=== PATIENT | male | born 1975 | race Caucasian/White ===

== ENCOUNTER 2021-08-06 14:05 | Inpatient (IN) | payer SELFPAY ==
[2021-08-06] VITALS (78 sets, daily range): BP systolic 86–179; BP diastolic 49–108; PULSE 53–107; RESP 14–20; TEMP 36.5–37.1; O2SAT 89–100; BMI 35.9
--- NOTE | 2021-08-06 14:07 | ECG_ITS ---
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 Measurements Intervals [place] Rate: 104 P: 35 WI: 160 QRS: 27 QRSD: 106 T: 34 QT: 334 QTc: 441 Interpretive Statements SINUS TACHYCARDIA No previous ECG available for comparison Electronically Signed On 08-06-2021 21:40:24 CDT by Arnulfo Masterson M.D. [id number] f
--- NOTE | 2021-08-06 14:07 | XRR_ITS ---
PROCEDURE INFORMATION: Exam: XR Chest Exam date and time: 08/06/2021 2:07 PM Age: 46 years old Clinical indication: Chest pain/pressure. TECHNIQUE: Imaging protocol: XR of the chest. Views: 1 view. COMPARISON: No relevant prior studies available. FINDINGS: Lungs: Probable mild left basilar atelectasis. There is a rounded masslike density at the medial right base that measures 2.8 cm. Pleural spaces: Possible small left pleural effusion. No pneumothorax. Heart/Mediastinum: Cardiac silhouette is prominent which may be exaggerated by low lung volumes and AP technique. No gross evidence of pneumomediastinum. Bones/joints: No gross fracture. XR/XR chest 1V portable [id number] IMPRESSION: 1. Rounded masslike density in the medial right base. Recommend CT chest with contrast to further assess. 2. Possible small left pleural effusion. 3. Probable mild left basilar atelectasis.
--- NOTE | 2021-08-06 14:11 | CTR_ITS ---
PROCEDURE INFORMATION: Exam: CT Head Without Contrast Exam date and time: 08/06/2021 2:11 PM Age: 46 years old Clinical indication: Altered mental status/memory loss. TECHNIQUE: Imaging protocol: Computed tomography of the head without contrast. Radiation optimization: All CT scans at this facility use at least one of these dose optimization techniques: automated exposure control; mA and/or kV adjustment per patient size (includes targeted exams where dose is matched to clinical indication); or iterative reconstruction. COMPARISON: No relevant prior studies available. RADIATION DOSE METRICS: Total DLP (mGy-cm): 996.31 FINDINGS: Brain: No acute intracranial hemorrhage. Lacunar infarcts within/adjacent to the basal ganglia, bilaterally, of indeterminate age. Possible lacunar infarcts in the milad. No mass, mass effect or midline shift.. There is no evidence of acute large vessel infarct.. Minimal presumed small vessel ischemic disease of indeterminate age. The posterior fossa is grossly unremarkable; however, it is partially obscurred by beam hardening artifact. Cerebral ventricles: The ventricles are normal in configuration. Paranasal sinuses: The visualized paranasal sinuses are clear. Bilateral Coleen cells are noted. Mastoid air cells: No mastoid effusion. Orbital cavity: The visualized orbits are unremarkable. Bones/joints: No acute fracture is seen. CT/CT head wo con* [id number] IMPRESSION: 1. Lacunar infarcts within/adjacent to the basal ganglia, bilaterally, of indeterminate age. Possible lacunar infarcts in the milad (these may be artifactual). Consider MRI to assess acuity. 2. Mild presumed small vessel ischemic disease of indeterminate age. 3. No acute intracranial hemorrhage. Radiation Dose CTDIVOL = (mGy): DLP = 996.31 (mGy-cm)
--- NOTE | 2021-08-06 14:14 | W.ED.CHESTPA ---
HPI - Chest Pain General: Chief Complaint: Chest Pain Stated Complaint: CHEST PAIN Time Seen by Provider: 08/06/21 14:07 Source: patient and EMS Mode of arrival: EMS Limitations: no limitations History of Present Illness: HPI narrative: 46-year-old male who had 8 THC gummy's today at noon was found in filled with some confusion. When EMS arrived patient was also complaining of chest pain and they gave him fentanyl and he is now pain-free. States he has chronic pain from injury years ago. Here he is lethargic but is able to answer all my questions appropriately. He does admit to taking a THC gummy. He denies any other drug ingestions. Denies any vomiting or diarrhea. Denies any head injuries that he knows of. Patient here is lethargic is able answer questions once he arouse him but he is confused and full history is difficult Associated symptoms: Deny abdominal pain, dyspnea, fever(s), nausea or vomiting Review of Systems Const: Denies: fever(s), chills, body aches or change in appetite Eyes: Denies: blurry vision or eye discomfort ENMT: Denies: throat pain or dental pain Card: Reports: chest pain Resp: Denies: dyspnea GI: Denies: abdominal pain, nausea, vomiting or diarrhea : Denies: dysuria Musc: Denies: neck pain or back pain Skin/Breast: Denies: rash Neuro: Reports: confusion Psych: Denies: depression Nish/Lymph: Denies: easy bruising All/Imm: Denies: urticaria Physical Exam Const: COMMON NORMALS: healthy appearing; negative for patient oriented x3 GENERAL APPEARANCE: lethargic ORIENTATION/CONSCIOUSNESS: Yes confused and Yes lethargic OTHER: Is able answer some my questions but then will fall asleep and he have to arouse him again and he gets confused HENMT: COMMON NORMALS: normocephalic and atraumatic HEAD & SCALP: normocephalic and atraumatic Eye: COMMON NORMALS: Equal, round and reactive pupils present and EOMs intact bilaterally PUPIL: Yes Equal, round and reactive pupils present Neck/C-Spine: COMMON NORMALS: full ROM and supple Chest: COMMONS NORMALS: normal inspection of the chest and normal palpation of entire chest wall Resp: COMMON NORMALS: normal respiratory effort, No retractions, No use of accessory muscles and clear to auscultation bilaterally AUSCULTATION: clear to auscultation bilaterally Cardio: COMMON NORMALS: regular rate, regular rhythm and No murmurs present (Cardio) RATE: regular rate RHYTHM: regular rhythm GI: COMMON NORMALS: Normal to inspection, nondistended, normoactive bowel sounds present, Soft to palpation, non-tender and no masses PALPATION: Yes Soft to palpation Extremity: COMMON NORMALS: normal to inspection and full ROM Neuro: COMMON NORMALS: moves all extremities and no focal motor deficits; negative for patient oriented x3 SENSORIUM/ORIENTATION: Yes lethargic OTHER: Patient has no focal deficits but full neuro exam is very difficult to obtain due to his mental status likely from THC use Psych: COMMON NORMALS: cooperative; negative for mental status grossly normal Skin: COMMON NORMALS: no rashes or lesions noted and no wounds GENERAL SKIN EXAM: no rashes or lesions noted Course Vital Signs: Vital signs: Vital Signs Temperature 97.8 F 08/06/21 15:33 Pulse Rate 102 H 08/06/21 16:29 Respiratory Rate 18 08/06/21 16:21 Blood Pressure 163/87 08/06/21 16:29 Pulse Oximetry 98 08/06/21 16:29 MDM - Chest Pain MDM Narrative: Medical decision making narrative: Marektz here with altered mental status along with drug overdose. CT showed possible infarcts. Patient not a TPA candidate due to time of onset along with his THC use and unable to tell if his symptoms are from drug related. I did speak to neurologist on-call Dr. Gates who recommended admitting the patient is still confused in the morning to do an MRI in the morning. I spoke to the hospitalist and will admit. Patient's had to seizure-like activity here. Seizures are atypical as he will wake up in the middle and was able to talk to me during 1 did not have any postictal period Lab Data: Labs: Lab Results 08/06/21 08/06/21 08/06/21 14:11 14:11 14:11 WBC 9.6 10^3/uL 10^3/ uL (4.0-10.0) RBC 4.71 10^6/uL 10^6 /uL (4.1-5.3) Hgb 13.7 g/dL g/dL (11.7-16.6) Hct 41.7 % L % (42.0-52.0) MCV 88.5 fl fl (80-94) MCH 29.1 pg pg (28.0-34.0) MCHC 32.9 g/dL g/dL (30.0-36.0) RDW 13.8 % % (12.1-15.1) Plt Count 325 10^3/cmm 10^3 /cmm (130-400) MPV 10.6 fL H fL (7.4-10.4) Neut % (Auto) 57.7 % % Lymph % (Auto) 31.1 % % [place] % (Auto) 6.1 % % Eos % (Auto) 3.7 % % Baso % (Auto) 1.2 % % Neut # (Auto) 5.54 10^3/uL 10^3 /uL (1.8-7.7) Lymph # (Auto) 3.0 10^3/uL 10^3/ uL (0.8-4.8) [place] # (Auto) 0.6 10^3/uL 10^3/ uL (0.2-0.9) Eos # (Auto) 0.4 10^3/uL 10^3/ uL (0.0-0.8) Baso # (Auto) 0.1 10^3/uL 10^3/ uL (0.0-0.1) Nucleated RBC % (a uto) 0 % % Nucleated RBCs # 0.0 /100WBC /100W BC Specimen Type Sample Site ABG pH ABG pCO2 ABG pO2 ABG HCO3 ABG Base Excess Maurice Test Hematocrit O2 Delivery Device O2 Liters/Min FiO2 Computer Sciences Professor ID Sodium 138 mmol/L mmol/L (136-145) Potassium 3.8 mmol/L mmol/L (3.5-5.1) Chloride 103 mmol/L mmol/L (98-107) Carbon Dioxide 22 mmol/L mmol/L (22-29) Anion Gap 16.8 (5-19) BUN 15 mg/dL mg/dL (6-20) Creatinine 0.9 mg/dL mg/dL (0.7-1.2) GFR Calculation 90.8 mL/min mL/mi n (90-130) Glucose 124 mg/dL H mg/dL (65-115) Calculated Osmolal ity 288 mOsm/kg mOsm/ kg (285-295) Calcium 9.1 mg/dL mg/dL (8.5-10.5) Total Bilirubin 0.2 mg/dL mg/dL (0.15-1.2) AST 13 U/L U/L (0-40) ALT 15 U/L U/L (0-41) Alkaline Phosphata se 93 IU/L IU/L (40-130) Troponin T Baselin e 7 ng/L ng/L (0-15) Troponin T 120 Min jolly Delta Troponin T Total Protein 7.3 g/dL g/dL (6.6-8.7) Albumin 4.6 g/dL g/dL (3.5-5.2) Globulin 2.7 g/dL g/dL (1.3-4.6) Salicylates < 0.3 mg/dL L mg/ dL (3-10) Urine Opiates Scre en Acetaminophen < 5.0 ug/mL L ug/ mL (10-30) Ur Barbiturates Sc reen Ur Phencyclidine S crn Ur Amphetamines Sc reen U Benzodiazepines Scrn Urine Cocaine Scre en U Marijuana (THC) Screen Ethyl Alcohol < 10 mg/dL mg/dL (0-10) 08/06/21 08/06/21 08/06/21 14:29 16:09 16:10 WBC RBC Hgb Hct MCV MCH MCHC RDW Plt Count MPV Neut % (Auto) Lymph % (Auto) [place] % (Auto) Eos % (Auto) Baso % (Auto) Neut # (Auto) Lymph # (Auto) [place] # (Auto) Eos # (Auto) Baso # (Auto) Nucleated RBC % (a uto) Nucleated RBCs # Specimen Type Arterial Sample Site Radial, right ABG pH 7.21 L (7.35-7.45) ABG pCO2 43.0 mmHg mmHg (35-45) ABG pO2 102.0 mmHg H mmHg (80.0-100.0) ABG HCO3 17.0 mmol/L L mmo l/L (22-26) ABG Base Excess -10.6 mmol/L L mm ol/L (-2.0-2.0) Maurice Test Pos Hematocrit 41.2 % L % (42-52) O2 Delivery Device Nc O2 Liters/Min 6.0 % % FiO2 45.0 % % Computer Sciences Professor ID [place] Sodium Potassium Chloride Carbon Dioxide Anion Gap BUN Creatinine GFR Calculation Glucose Calculated Osmolal ity Calcium Total Bilirubin AST ALT Alkaline Phosphata se Troponin T Baselin e Troponin T 120 Min jolly 7.61 ng/L ng/L (0-15) Delta Troponin T 0.61 ABS# ABS# (0-10) Total Protein Albumin Globulin Salicylates Urine Opiates Scre en Negative ng/mL ng /mL (Negative) Acetaminophen Ur Barbiturates Sc reen Negative ng/mL ng /mL (Negative) Ur Phencyclidine S crn Negative ng/mL ng /mL (Negative) Ur Amphetamines Sc reen Negative ng/mL ng /mL (Negative) U Benzodiazepines Scrn Negative ng/mL ng /mL (Negative) Urine Cocaine Scre en Negative ng/mL ng /mL (Negative) U Marijuana (THC) Screen Positive ng/mL H ng/mL (Negative) Ethyl Alcohol Imaging Data^: CXR: Attestation: I personally reviewed and interpreted this imaging study as follows: My impression: no acute abnormality CT Head: Radiologist's impression: [address] [address] [address] Scan Report Signed Patient: Singh Son Unit #: [id number] : 1975 Age/Sex: 46 / M ADM Date: 08/06/21 Loc: ER Room/Bed: Attending Dr: Ordering Provider/Ordering MD: Sancho Person MD Date of Service: 08/06/21 Procedure(s): CT head wo con* [id number] Accession Number(s): [id number] Report Number: [id number] PROCEDURE INFORMATION: Exam: CT Head Without Contrast Exam date and time: 08/06/2021 2:11 PM Age: 46 years old Clinical indication: Altered mental status/memory loss. TECHNIQUE: Imaging protocol: Computed tomography of the head without contrast. Radiation optimization: All CT scans at this facility use at least one of these dose optimization techniques: automated exposure control; mA and/or kV adjustment per patient size (includes targeted exams where dose is matched to clinical indication); or iterative reconstruction. COMPARISON: No relevant prior studies available. RADIATION DOSE METRICS: Total DLP (mGy-cm): 996.31 FINDINGS: Brain: No acute intracranial hemorrhage. Lacunar infarcts within/adjacent to the basal ganglia, bilaterally, of indeterminate age. Possible lacunar infarcts in the milad. No mass, mass effect or midline shift.. There is no evidence of acute large vessel infarct.. Minimal presumed small vessel ischemic disease of indeterminate age. The posterior fossa is grossly unremarkable; however, it is partially obscurred by beam hardening artifact. Cerebral ventricles: The ventricles are normal in configuration. Paranasal sinuses: The visualized paranasal sinuses are clear. Bilateral Coleen cells are noted. Mastoid air cells: No mastoid effusion. Orbital cavity: The visualized orbits are unremarkable. Bones/joints: No acute fracture is seen. CT/CT head wo con* [id number] IMPRESSION: 1. Lacunar infarcts within/adjacent to the basal ganglia, bilaterally, of indeterminate age. Possible lacunar infarcts in the milad (these may be artifactual). Consider MRI to assess acuity. 2. Mild presumed small vessel ischemic disease of indeterminate age. 3. No acute intracranial hemorrhage. Radiation Dose CTDIVOL = (mGy): DLP = 996.31 (mGy-cm) Dictated By: Messi Meyer Signed By: Messi Meyer Signed Date/Time: 08/06/211557 DD/ 56 EKG Data^: EKG 1: Attestation: I personally reviewed and interpreted this EKG as follows: EKG interpretation date: 08/06/21 EKG interpretation time: 14:11 Interpretation: sinus tach hr [address] or t wave abnormalities qrs 106 qtc 395 Critical Care Time Critical Care Time: Critical Care Time: Yes Total Critical Care Time: 35 Attestation: This case had a high probability of a clinically significant, sudden, or life threatening deterioration of this patient's condition which required my full and direct attention, intervention and personal management. 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
[2021-08-06 14:18] LABS: Basophils # 0.1 10^3/uL (0.0-0.1); Basophils % 1.2 %; Eosinophils # 0.4 10^3/uL (0.0-0.8); Eosinophils % 3.7 %; Hematocrit 41.7 % (42.0-52.0); Hemoglobin 13.7 g/dL (11.7-16.6); Lymphocytes % 31.1 %; Mean Corpuscular HGB Conc 32.9 g/dL (30.0-36.0); Mean Corpuscular Hemoglobin 29.1 pg (28.0-34.0); Mean Corpuscular Volume 88.5 fl (80-94); Mean Platelet Volume 10.6 fL (7.4-10.4); Monocytes # 0.6 10^3/uL (0.2-0.9); Monocytes % 6.1 %; Neutrophils # 5.54 10^3/uL (1.8-7.7); Neutrophils % 57.7 %; Nucleated Red Blood Cells % 0 %; Platelet Count 325 10^3/cmm (130-400); Red Blood Count 4.71 10^6/uL (4.1-5.3); Red Cell Distribution Width 13.8 % (12.1-15.1); White Blood Count 9.6 10^3/uL (4.0-10.0)
[2021-08-06] MEDS: sodium chloride 0.9% 1,000 ML 999 ML IV ×2 (14:42→16:35)
[2021-08-06 14:52] LABS: Troponin(5th) Baseline 7 ng/L (0-15)
[2021-08-06 14:54] LABS: Alanine Aminotransferase 15 U/L (0-41); Albumin Level 4.6 g/dL (3.5-5.2); Alkaline Phosphatase 93 IU/L (40-130); Anion Gap 16.8 (5-19); Aspartate Amino Transferase 13 U/L (0-40); Blood Urea Nitrogen 15 mg/dL (6-20); Calcium 9.1 mg/dL (8.5-10.5); Carbon Dioxide 22 mmol/L (22-29); Chloride 103 mmol/L (98-107); Globulin 2.7 g/dL (1.3-4.6); Glomerular Filtration Rate 90.8 mL/min (90-130); Glucose 124 mg/dL (65-115); Osmolality Calculated 288 mOsm/kg (285-295); Potassium 3.8 mmol/L (3.5-5.1); Sodium 138 mmol/L (136-145); Total Bilirubin 0.2 mg/dL (0.15-1.2); Total Protein 7.3 g/dL (6.6-8.7)
[2021-08-06 15:00] LABS: Amphetamines Screen Urine Negative (Negative); Barbiturates Screen Urine Negative (Negative); Benzodiazepines Screen Urine Negative (Negative); Cocaine Screen Urine Negative (Negative); Opiate Screen Urine Negative (Negative); PCP Screen Urine Negative (Negative); THC Screen Urine Positive (Negative)
[2021-08-06 15:05] LABS: Acetaminophen < 5.0 ug/mL (10-30); Alcohol Level < 10 mg/dL (0-10); Salicylate < 0.3 mg/dL (3-10)
--- NOTE | 2021-08-06 15:44 | PC.NURSE ---
Patients reports he had a seizure that looked like shaking over his whole body, Dr Person is notified and vitals taken, he shakes his head from side to side with sternal rub.
--- NOTE | 2021-08-06 15:48 | PC.NURSE ---
Please note there is no loss of bowel or urine function at this time.
--- NOTE | 2021-08-06 15:52 | PC.NURSE ---
Patient woke up and stated he didnt know where he was at, he spoke with the doctor for a few moments.
--- NOTE | 2021-08-06 15:54 | PC.NURSE ---
Seizure precaution in place.
[2021-08-06] MEDS: labetalol 5 mg/mL SDV 20mL 10 MG IVP (15:58)
--- NOTE | 2021-08-06 16:07 | ECG_ITS ---
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 Measurements Intervals [place] Rate: 108 P: 70 DC: 155 QRS: 63 QRSD: 101 T: 28 QT: 325 QTc: 437 Interpretive Statements SINUS TACHYCARDIA Compared to ECG 08/06/2021 14:11:27 No significant changes Electronically Signed On 08-06-2021 21:44:27 CDT by Arnulfo Masterson M.D. [id number] f
[2021-08-06] MEDS: LORazepam 2 mg/mL INJ 1 mL IVP (16:12)
[2021-08-06 16:23] LABS: ABG PH Result 7.21 (7.35-7.45); Arterial Blood Gas Hematocrit 41.2 % (42-52); Base Excess ABG -10.6 mmol/L (-2.0-2.0); Blood Gas Allen Test Pos; Blood Gas Operator Identificat MONRO; Blood Gas Sample Site Radial, right; Blood Gas Sample Type Arterial; Oxygen Device NC
--- NOTE | 2021-08-06 16:25 | PC.NURSE ---
Patient continues to have seizure like activity, he wakes after each episode and speaks 2-3 word phrases.
[2021-08-06 16:58] LABS: Troponin 5 2HR 7.61 ng/L (0-15); Troponin 5 2HR Delta 0.61 ABS# (0-10)
--- NOTE | 2021-08-06 17:14 | PC.NURSE ---
Patient request mouth swab and speaks on the phone with family. He continues to have seizure like activity. No loss of bowel or bladder at this time.
--- NOTE | 2021-08-06 17:32 | PC.NURSE ---
Patient speaks with doctor at bedside and is able to answer questions appropriately.
--- NOTE | 2021-08-06 17:53 | P.HP_ITS ---
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 Currently patient during my examination was having a seizure episode, with diffuse shaking of upper and lower extremities, no urinary bowel incontinence, for roughly 20 seconds, but immediately after was able to answer my questions, a significant portion of the history was obtained by at bedside, but intermittently patient would answer questions. 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 secondary to that, he has developed chronic pain, his pain is everywhere, but particularly in his back, in his right shoulder, it is hands, he was monitored with hydrocodone for some period of time he is on the highest dose, it was not effective, and the last time he used it was many months ago, given his chronic pain, his son gave him THC Gummies, he took one of the Gummies last night, without any significant benefit, they got these THC Gummies from a vape store near [place], this morning he continued to have episodes of pain so he took 3 of the THC Gummies, and right after he started to develop diffuse shaking of upper and lower extremities, no urinary bowel incontinence, w ith intermittent episodes of postictal confusion, he would come in in and out of these episodes, he does have a prior history of seizures, his is not sure which medications he was on, or the diagnosis, he does confirm that he has had seizures, but he is not sure what medication he was taking, denies any fevers, no chills, no known exposure to Covid exposure, no no history of Covid and infection, has no complaints of neck stiffness, but does have neck pain, during my examination he is rotating his head towards me and towards his , he is looking towards the nurse, he is having diffuse shaking of the upper and lower extremities, but is able to answer questions, at times he does look dazed, he tells me that he always has a headache, his headaches never go away, no nausea, no vomiting, no paresthesias, thought that during his seizure episode he had some degree of left facial drooping, 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 In the emergency room he received Keppra, Ativan, without significant improvement of his symptoms. His CT scan showed old lacunar infarcts, the case was discussed with Dr. Gates, she recommended inpatient observation. Currently patient is alert to person, to place, not to time, he does follow commands, I advised nurse to give him another 1000 mg of Keppra, he is being transported to the ICU for further monitoring. Review of Systems Const: Reports: body aches; Denies: fever(s), chills, fatigue or malaise Eyes: Denies: change in vision ENMT: Denies: nasal congestion Card: Denies: chest pain, palpitations, irregular heart rhythm, edema, lightheadedness, syncope or pre-syncope Resp: Denies: dyspnea, productive cough, non-productive cough or wheezing GI: Denies: abdominal pain, nausea, vomiting, hematemesis, diarrhea, constipation, hematochezia or melena : Reports: urinary frequency; Denies: flank pain, difficulty urinating or dysuria Musc: Reports: neck pain, back pain, extremity pain, joint pain and muscle cramps Skin/Breast: Denies: rash Neuro: Reports: headache(s); Denies: numbness in extremities, weakness in extremities, sensory changes, lack of coordination, difficulty walking, frequent falls, dizziness, vertigo, Slurred speech present or difficulty communicating thoughts Psych: Denies: anxiety or depression Endo: Denies: polyuria or polydipsia Medications/Allergies Home Medications Medication Instructions Recorded Confirmed Last Taken Type amlodipine 5 mg PO DAILY 08/06/21 08/06/21 08/05/21 History gabapentin See Rx Instructions .ROUTE .COMPLEX 08/06/21 08/06/21 08/05/21 History paroxetine HCl See Rx Instructions .ROUTE .COMPLEX 08/06/21 08/06/21 08/05/21 History trazodone 50 mg PO BEDTIME PRN 08/06/21 08/06/21 Unknown History Allergies Allergy/AdvReac Type Severity Reaction Status Date / Time No Known Allergies Allergy Unverified 08/06/21 16:23 PFSH Acute PFSH: Medical History (Updated 08/06/21 @ 18:06 by Mitch Bone MD) History of anxiety History of chronic pain History of CVA (cerebrovascular accident) History of hypertension History of seizures Surgical History (Updated 08/06/21 @ 18:03 by Mitch Bone MD) History of shoulder surgery Family History (Updated 08/06/21 @ 18:03 by Mitch Bone MD) Father Diabetes Hypertension Social History (Updated 08/06/21 @ 18:04 by Mitch Bone MD) Smoking and tobacco status: never smoked Alcohol intake: never Substance/Drug Use: current Substance/Drug use type: Marijuana Vitals/I&O/Wt Last Vital Signs Temp 97.8 F 08/06/21 17:28 Pulse 94 08/06/21 17:28 Resp 16 08/06/21 17:28 BP 130/71 08/06/21 17:28 Pulse Ox 97 08/06/21 17:28 08/06/21 08/06/21 08/06/21 06:59 14:59 22:59 Intake Total 1000 / 1000 Balance 1000 / 1000 Weight last 48 hrs Weight 120.202 kg Physical Exam Const: GENERAL APPEARANCE: cooperative ORIENTATION/CONSCIOUSNESS: Yes awake, Yes oriented to person, Yes oriented to place and Yes confused; not oriented to time OTHER: Having intermittent diffuse shaking episodes, followed by a dazed look, can answer questions, can follow commands after shaking episodes right away HENMT: COMMON NORMALS: normocephalic HEAD & SCALP: normocephalic Eye: COMMON NORMALS: Equal, round and reactive pupils present and EOMs intact bilaterally GENERAL EYE: appearance normal, both eyes and all related structures PUPIL: Yes Equal, round and reactive pupils present Neck/C-Spine: COMMON NORMALS: full ROM and no lymphadenopathy THYROID: Thyroid normal Lymph: LYMPHATIC: no lymphadenopathy noted Resp: COMMON NORMALS: normal respiratory effort, No retractions, No use of accessory muscles and clear to auscultation bilaterally AUSCULTATION: clear to auscultation bilaterally Cardio: COMMON NORMALS: regular rate, regular rhythm, S1 normal heart sound present, S2 normal heart sound present, No gallops present (Cardio), No clicks present (Cardio) and No murmurs present (Cardio) RATE: regular rate RHYTHM: regular rhythm HEART SOUNDS: S1 normal heart sound present and S2 normal heart sound present GI: COMMON NORMALS: Normal to inspection, nondistended, normoactive bowel sounds present, Soft to palpation and non-tender PALPATION: Yes Soft to palpation Extremity: COMMON NORMALS: normal to inspection, full ROM and no pedal edema Neuro: COMMON NORMALS: CN's II-XII intact bilaterally, moves all extremities and no focal motor deficits OTHER: Diffuse shaking of upper and lower extremities, eyes do roll to the sides during these episodes, after his episodes he does have a days low, but is able to answer questions right away Psych: COMMON NORMALS: mental status grossly normal Data : 08/06/21 14:11 08/06/21 14:11 A&P Assessment and plan (1) Grand mal seizure disorder: -Possible grand mal seizure associate with THC use, I am unsure of the THC brand, possible toxins in the THC but does have a history of seizures -Seizure seem a bit atypical, as during his seizure episodes he is able to answer some questions, he does have some post ictal state for lasting a few seconds, and is able to answer questions right away CT of the head shows 1. Lacunar infarcts within/adjacent to the basal ganglia, bilaterally, of indeterminate age. Possible lacunar infarcts in the milad (these may be artifactual). Consider MRI to assess acuity. 2. Mild presumed small vessel ischemic disease of indeterminate age. -No significant electrolyte abnormalities -Currently has received Ativan, Keppra Plan: -Admit to ICU -Seizure precautions, aspiration precautions, neurochecks -Is requiring 6 L, possible aspiration pneumonia aspiration event start Zosyn -Can consider an LP, if he develops fevers, or any significant inflammatory marker elevation, currently clinical suspicion for meningitis is low as he clinically does not have any neck stiffness, no significant leukocytosis, afebrile -Keppra 1000 mg every 12 hours, Ativan for breakthrough seizures -We will order an MRI of the brain, EEG Status: Acute (2) Accidental marijuana overdose: Status: Acute Qualifiers: Encounter type: initial encounter Qualified Code(s): T40.7X1A - Poisoning by cannabis (derivatives), accidental (unintentional), initial encounter Additional A&P Information Chest x-ray shows a masslike density in the right medial base, when patient is m ore clinically stable we will do a CT of the chest Attestations Medical Necessity Statement*: Patient requires hospitalization for grand mal seizure, inpatient, greater than 2 midnights Coding Level of Care Code Acute Core Baker for Abner Bocanegra Diagnoses Grand mal seizure disorder G40.409 Accidental marijuana overdose T40.7X1A Encounter type: initial encounter
[2021-08-06] MEDS: sodium chloride 0.9% 1,000 ML 100 ML IV (18:38)
[2021-08-06] MEDS: pantoprazole 40 mg SDV IVP (18:38)
[2021-08-06] MEDS: heparin 5,000 unit/mL INJ 1 mL 5000 UNIT SUBCUT (18:38)
[2021-08-06] MEDS: aspirin 81 mg EC Tablet PO (18:39)
--- NOTE | 2021-08-06 19:00 | PC.NURSE ---
1800 Pt admitted to icu 1. Connected to ICU monitors. VSS. Siderails padded. Answers most questions appropriately. HAs some seizure activity noted. Report given to Bernard LEUNG.
[2021-08-06 19:16] LABS: C Reactive Protein 2.2 mg/L (0.0-4.9)
[2021-08-06 19:43] LABS: Prolactin 7.46 ng/mL (4.0-15.2)
[2021-08-06] MEDS: piperacillin-tazobactam 3.375 GM in sodium chloride 0.9% (plus) 50 ML IV (19:55)
[2021-08-06] MEDS: atorvastatin 40 mg Tablet 80 MG PO (20:00)
[2021-08-06 20:41] LABS: Troponin 5 6HR 9.83 ng/L (0-15); Troponin 5 6HR Delta 2.83 ng/L (0-12)
[2021-08-07] VITALS (95 sets, daily range): BP systolic 102–176; BP diastolic 53–113; PULSE 47–83; RESP 0–30; TEMP 36.4–36.7; O2SAT 70–99
--- NOTE | 2021-08-07 | MR_ITS ---
WS: [id number] MRI BRAIN WITHOUT CONTRAST HISTORY: HX OF CVA AND SEIZURES COMPARISON: CT head 08/06/2021 TECHNIQUE: Diffusion imaging, multiplanar T1, T2 and FLAIR imaging obtained. No evidence for acute infarct or hemorrhage. Carbone-white matter differentiation is normal. There are a few scattered T2 and FLAIR signal hyperintensities predominantly in a subcortical distrib ution bilaterally. No prior infarct. Ventricles and extra-axial spaces are normal. No inferior displacement of cerebellar tonsils. Normal milad. The sella turcica and pituitary gland ar e unremarkable. Dural venous sinuses and [place] of [place] demonstrate no abnormality on this unenhanced studies. Paranasal sinuses: Small amount mucoperiosteal thickening in the LEFT maxillary sinus. Mastoid air cells: Fluid in the mastoid air cells bilaterally, RIGHT greater than LEFT. Calvarium and scalp: Intact. MR/MR head wo con* [id number] IMPRESSION: 1. No acute infarct. 2. No hemorrhage. 3. Very minimal chronic microvascular ischemic ischemic changes in the white m atter.
[2021-08-07 04:45] LABS: Basophils # 0.1 10^3/uL (0.0-0.1); Basophils % 1.1 %; Eosinophils # 0.2 10^3/uL (0.0-0.8); Eosinophils % 3.5 %; Hematocrit 36.2 % (42.0-52.0); Hemoglobin 11.4 g/dL (11.7-16.6); Lymphocytes # 1.9 10^3/uL (0.8-4.8); Lymphocytes % 30.1 %; Mean Corpuscular HGB Conc 31.5 g/dL (30.0-36.0); Mean Corpuscular Hemoglobin 29.1 pg (28.0-34.0); Mean Corpuscular Volume 92.3 fl (80-94); Mean Platelet Volume 10.2 fL (7.4-10.4); Monocytes # 0.4 10^3/uL (0.2-0.9); Monocytes % 5.8 %; Neutrophils # 3.69 10^3/uL (1.8-7.7); Neutrophils % 59.3 %; Nucleated Red Blood Cells % 0 %; Platelet Count 224 10^3/cmm (130-400); Red Blood Count 3.92 10^6/uL (4.1-5.3); Red Cell Distribution Width 14.3 % (12.1-15.1); White Blood Count 6.2 10^3/uL (4.0-10.0)
[2021-08-07] MEDS: piperacillin-tazobactam 3.375 GM in sodium chloride 0.9% (plus) 50 ML IV ×2 (05:13→11:11)
[2021-08-07] MEDS: sodium chloride 0.9% 1,000 ML 100 ML IV ×2 (05:14→16:01)
[2021-08-07] MEDS: heparin 5,000 unit/mL INJ 1 mL 5000 UNIT SUBCUT ×2 (05:15→18:25)
[2021-08-07 05:25] LABS: Creatine Phosphokinase 107 U/L (39-308)
[2021-08-07 05:26] LABS: Ammonia 50 umol/L (16-60)
[2021-08-07 05:31] LABS: Alanine Aminotransferase 11 U/L (0-41); Albumin Level 3.5 g/dL (3.5-5.2); Alkaline Phosphatase 67 IU/L (40-130); Anion Gap 10.2 (5-19); Aspartate Amino Transferase 9 U/L (0-40); Blood Urea Nitrogen 9 mg/dL (6-20); Calcium 8.4 mg/dL (8.5-10.5); Carbon Dioxide 24 mmol/L (22-29); Chloride 110 mmol/L (98-107); Globulin 2.6 g/dL (1.3-4.6); Glomerular Filtration Rate 104.1 mL/min (90-130); Glucose 89 mg/dL (65-115); Magnesium 2.4 mg/dL (1.7-2.3); Osmolality Calculated 288 mOsm/kg (285-295); Phosphorus 2.2 mg/dL (2.5-4.5); Potassium 4.2 mmol/L (3.5-5.1); Sodium 140 mmol/L (136-145); Thyroid Stimulating Hormone 0.76 uIU/mL (0.27-4.20); Total Bilirubin 0.2 mg/dL (0.15-1.2); Total Protein 6.1 g/dL (6.6-8.7)
--- NOTE | 2021-08-07 06:44 | PC.NURSE ---
Shift Note Frequent safety and comfort rounds continue. Orders and/or nursing care completed as indicated. Patient monitored for response to intervention and treatment(s). Education provided includes[]. Patient and/or business banking representative [ResponseToTeaching]. Will continue to monitor. There were no changes during the shift. The patient was stable and oriented to self, place, and situation. There were no complications. There were no visual seizures that took place. The patient's oxygen saturation is in the 90's without a nasal cannula (the patient took it off). The phosphorus level was slightly low a 2.2 and reported to [place] during shift change.
--- NOTE | 2021-08-07 07:10 | PC.NURSE ---
0700 Report received, assessment completed. Pt satting 78% on RA, NC had become displaced from nose. Replaced and O2 sat up to mid 90's on 6LNC. Pt states that he had sleep study done and has not had results returned to him. S/S of JOSE noted. Pt AAOx3, disoriented to place. Reoriented PRN. Uses uriinal for elimination. SR up and padded, CLWR. Will monitor.
[2021-08-07] MEDS: aspirin 81 mg EC Tablet PO (08:02)
--- NOTE | 2021-08-07 09:49 | PC.CHAP ---
Pastoral Care Encounter/Spiritual Assessment Type of Contact [] Declined counter molder visit [] Patient/Family/Request visit [] Outpatient visit [] Follow-up visit [] Physician referral [] Code/Alert [x] Routine visit [] Staff referral [] Actively dying [] Patient sleeping [] Family support [] [] Out of room [] Palliative care [] [x] Receiving care in room [] Pre-surgical visit [] Trauma [] Long length of stay [x] ICU visit [] Other: Relational/Emotional Strength [] Patient feels connected with others/family/visitors/staff [] Distress [] Loneliness/isolation [] Abandonment Spirituality of Patient [] Person of Cherie [] Attends Restoration of their Cherie [] Believes in Prayer [] Reads Bible or Taoist materials [] There are Spiritual issues to be addressed Electronic Equipment Maint Tech Interventions [x] Prayer [] Active listening [] Non-anxious presence [] Spiritual/emotional support [] Crisis/trauma care [] Spiritual counseling [] Bereavement support [] Provided bereavement packet [] Provided Bible/devotional materials [] Provided toy/stuffed animal, coloring book to patient or family member [] Provided Communion [] Anointing/[place] [] Salvation [x] Completed spiritual assessment [] Other: Impact on Illness or Injury [] Angry [] Fearful [] Anxious [] Often cries [] Exhaustion [] Unable to work [] Unable to attend jewish [] Unable to walk/stand [] Unable to read [] Unable to drive [] Unable to eat/drink [] Unable to sleep [] Unable to be with family [] Patient intubated [] Other: Summary Time spent with patient
--- NOTE | 2021-08-07 10:39 | PM.PN ---
Subjective Subjective: Interval history: Patient was seen and examined this morning, no seizure, complaining of generalized body pain. Medications: Reviewed: Yes Vitals/I&O/Wt Last Vital Signs Temp 98.1 F 08/07/21 10:00 Pulse 70 08/07/21 10:00 Resp 17 08/07/21 10:00 BP 127/65 08/07/21 10:00 Pulse Ox 95 08/07/21 08:00 08/06/21 08/07/21 08/07/21 22:59 06:59 14:59 Intake Total 2220 / 2220 1160 / 3380 50 / 50 Output Total 750 / 750 2070 / 2820 1300 / 1300 Balance 1470 / 1470 -910 / 560 -1250 / -1250 Weight last 48 hrs Weight 120.202 kg Weight 120.202 kg Physical Exam Const: COMMON NORMALS: patient oriented x3 HENMT: COMMON NORMALS: normocephalic and atraumatic HEAD & SCALP: normocephalic and atraumatic Resp: COMMON NORMALS: normal respiratory effort, No retractions, No use of accessory muscles and clear to auscultation bilaterally EFFORT & INSPECTION: Yes symmetric chest movement AUSCULTATION: clear to auscultation bilaterally Cardio: COMMON NORMALS: regular rate, regular rhythm, S1 normal heart sound present, S2 normal heart sound present, No gallops present (Cardio), No murmurs present (Cardio), No rub (Cardio) and Peripheral pulses 2+ throughout RATE: regular rate RHYTHM: regular rhythm HEART SOUNDS: S1 normal heart sound present and S2 normal heart sound present PERIPHERAL PULSES: Peripheral pulses 2+ throughout GI: COMMON NORMALS: Normal to inspection, nondistended, normoactive bowel sounds present, Soft to palpation, non-tender, No hepatosplenomegaly present and no masses AUSCULTATION: Yes normoactive bowel sounds PALPATION: Yes Soft to palpation and Yes No hepatosplenomegaly present RECTAL EXAM: Yes deferred Extremity: COMMON NORMALS: no clubbing, cyanosis or edema and no pedal edema Neuro: COMMON NORMALS: patient oriented x3 Data : 08/07/21 04:30 08/07/21 04:30 Micro: Microbiology 08/06/21 20:10 Blood Culture - Preliminary Blood SPECIMEN COLLECTED 08/06/21 20:08 Blood Culture - Preliminary Blood SPECIMEN COLLECTED A&P Assessment and plan (1) Grand mal seizure disorder: -Possible grand mal seizure associate with THC use, I am unsure of the THC brand, possible toxins in the THC but does have a history of seizures -Seizure seem a bit atypical, as during his seizure episodes he is able to answer some questions, he does have some post ictal state for lasting a few seconds, and is able to answer questions right away CT of the head shows 1. Lacunar infarcts within/adjacent to the basal ganglia, bilaterally, of indeterminate age. Possible lacunar infarcts in the milad (these may be artifactual). Consider MRI to assess acuity. 2. Mild presumed small vessel ischemic disease of indeterminate age. -No significant electrolyte abnormalities -MRI Brain without Contrast : Very minimal chronic microvascular ischemic ischemic changes in the white matter. -Follow EEG -Currently has received Ativan, Keppra Plan: -Seizure precautions, aspiration precautions, neurochecks -Is requiring 3 L, possible aspiration pneumonia aspiration initially on Zosyn has been switched to augmentin. -Can consider an LP, if he develops fevers, or any significant inflammatory marker elevation, currently clinical suspicion for meningitis is low as he clinically does not have any neck stiffness, no significant leukocytosis, afebrile -Keppra 1000 mg every 12 hours, Ativan for breakthrough seizures Status: Acute (2) Accidental marijuana overdose: Status: Acute Qualifiers: Encounter type: initial encounter Qualified Code(s): T40.7X1A - Poisoning by cannabis (derivatives), accidental (unintentional), initial encounter Additional A&P Information Chest x-ray shows a mass like density in the right medial base: Follow CT of the chest Attestations Medical Necessity Statement*: Patient needs to be in hospital for Seizure. Coding Level of Care Code Acute Traffic Representative for Abner Bocanegra Diagnoses Grand mal seizure disorder G40.409 Accidental marijuana overdose T40.7X1A Encounter type: initial encounter
[2021-08-07] MEDS: acetaminophen 325 mg Tablet 650 MG PO (11:12)
--- NOTE | 2021-08-07 15:39 | PC.NURSE ---
1245 Left with pt to MRI via ambulance. 1345 Returned with pt from MRI, tolerated well. Pt had episode of absence while there at MRI room. Hooked to monitors.
[2021-08-07] MEDS: oxyCODONE-APAP 5-325 mg Tablet 1 TAB PO (15:59)
--- NOTE | 2021-08-07 17:14 | PC.NURSE ---
1712 Report given to Kristin LEUNG.
--- NOTE | 2021-08-07 17:39 | PC.NURSE ---
1730 Pt transported to 255-2 per this nurse. tolerated well. Kristin LEUNG at bedside.
[2021-08-07] MEDS: pantoprazole 40 mg SDV IVP (18:22)
--- NOTE | 2021-08-07 19:41 | CTR_ITS ---
PROCEDURE INFORMATION: Exam: CT Chest With Contrast; Diagnostic Exam date and time: 08/07/2021 7:41 PM Age: 46 years old Clinical indication: Abnormal findings; Abnormal radiologic exam of lung or chest; Additional info: Rounded mass like density at medial RT base TECHNIQUE: Imaging protocol: Diagnostic computed tomography of the chest with contrast. Total images: 279 Radiation optimization: All CT scans at this facility use at least one of these dose optimization techniques: automated exposure control; mA and/or kV adjustment per patient size (includes targeted exams where dose is matched to clinical indication); or iterative reconstruction. Contrast material: OMNI 300; Contrast volume: 95 ml; Contrast route: INTRAVENOUS (IV); COMPARISON: CR (CHEST, ) 08/06/2021 2:32 PM RADIATION DOSE METRICS: Total DLP (mGy-cm): 902.41 FINDINGS: Lungs: No visible active interstitial or alveolar airspace disease. Rare calcified granuloma of antecedent disease. No visible lung nodule or mass. Pleural spaces: Unremarkable. No pneumothorax. No pleural effusion. Heart: Normal cardiac size. No visible pericardial effusion. No visible coronary artery disease. Aorta: The thoracic aorta is nonaneurysmal. No visible intimal flap or dissection. Lymph nodes: No visible evidence of active mediastinal or hilar lymphadenopathy. Few calcified complexes of antecedent granulomatous disease. Bones/joints: No visible active or acute osseous pathology. Mild scoliotic curvature of the spine. Soft tissues: Unremarkable. CT/CT chest w con* [id number] IMPRESSION: 1. No visible active or acute cardiopulmonary/cardiothoracic pathologic process. 2. Evidence of antecedent granulomatous disease. Radiation Dose CTDIVOL = (mGy): DLP = 902.41 (mGy-cm)
[2021-08-07] MEDS: iohexol 300 mg/mL 100 mL Btl IV (20:47)
[2021-08-07] MEDS: atorvastatin 40 mg Tablet 80 MG PO (21:07)
[2021-08-08] MEDS: sodium chloride 0.9% 1,000 ML 100 ML IV (01:48)
[2021-08-08 03:58] VITALS: BP 117/70; PULSE 57; RESP 16; TEMP 36.8; O2SAT 99
[2021-08-08] MEDS: heparin 5,000 unit/mL INJ 1 mL 5000 UNIT SUBCUT (05:16)
[2021-08-08 05:37] VITALS: PULSE 48
[2021-08-08 05:49] LABS: Basophils # 0.1 10^3/uL (0.0-0.1); Basophils % 1.4 %; Eosinophils # 0.3 10^3/uL (0.0-0.8); Eosinophils % 4.9 %; Hematocrit 39.7 % (42.0-52.0); Hemoglobin 12.6 g/dL (11.7-16.6); Lymphocytes # 1.9 10^3/uL (0.8-4.8); Lymphocytes % 29.4 %; Mean Corpuscular HGB Conc 31.7 g/dL (30.0-36.0); Mean Corpuscular Volume 91.3 fl (80-94); Mean Platelet Volume 9.5 fL (7.4-10.4); Monocytes # 0.4 10^3/uL (0.2-0.9); Monocytes % 5.3 %; Neutrophils # 3.85 10^3/uL (1.8-7.7); Neutrophils % 58.7 %; Nucleated Red Blood Cells % 0 %; Platelet Count 228 10^3/cmm (130-400); Red Blood Count 4.35 10^6/uL (4.1-5.3); Red Cell Distribution Width 13.9 % (12.1-15.1); White Blood Count 6.6 10^3/uL (4.0-10.0)
[2021-08-08 06:08] LABS: Ammonia 24 umol/L (16-60)
[2021-08-08 06:15] LABS: Alanine Aminotransferase 12 U/L (0-41); Albumin Level 3.7 g/dL (3.5-5.2); Alkaline Phosphatase 70 IU/L (40-130); Anion Gap 10.8 (5-19); Aspartate Amino Transferase 8 U/L (0-40); Blood Urea Nitrogen 7 mg/dL (6-20); Calcium 8.4 mg/dL (8.5-10.5); Carbon Dioxide 27 mmol/L (22-29); Chloride 105 mmol/L (98-107); Globulin 2.5 g/dL (1.3-4.6); Glomerular Filtration Rate 104.1 mL/min (90-130); Glucose 89 mg/dL (65-115); Magnesium 2.2 mg/dL (1.7-2.3); Osmolality Calculated 285 mOsm/kg (285-295); Phosphorus 2.5 mg/dL (2.5-4.5); Potassium 3.8 mmol/L (3.5-5.1); Sodium 139 mmol/L (136-145); Total Bilirubin 0.3 mg/dL (0.15-1.2); Total Protein 6.2 g/dL (6.6-8.7)
[2021-08-08 06:18] LABS: Creatine Phosphokinase 77 U/L (39-308)
[2021-08-08 07:57] VITALS: BP 148/90; PULSE 57; RESP 14; TEMP 36.4; O2SAT 96
--- NOTE | 2021-08-08 07:58 | PC.NURSE ---
Patient complained of headache. canula is on his chest. running 96o2 room air. i reported to the nurse
[2021-08-08 08:09] VITALS: RESP 14
[2021-08-08] MEDS: oxyCODONE-APAP 5-325 mg Tablet 1 TAB PO (08:09)
[2021-08-08] MEDS: aspirin 81 mg EC Tablet PO (08:10)
--- NOTE | 2021-08-08 09:35 | P.DS_ITS ---
Discharge Providers Date of Admission: 08/06/21 17:15 Date of Discharge: August 08, 2021 Attending Provider at Admission: Mitch Bone MD Attending Provider at Discharge: Jeff Stokes MD Diagnoses at Discharge Discharge Diagnosis (1) Grand mal seizure disorder: Status: Acute (2) Accidental marijuana overdose: Status: Acute Qualifiers: Encounter type: initial encounter Qualified Code(s): T40.7X1A - Poisoning by cannabis (derivatives), accidental (unintentional), initial encounter Reason for Visit Reason for Visit: CHEST PAIN Hospital Course Hospital Course 46 year old male with a past medical history of 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 Patient was admitted for management of breakthrough seizure. During his hospital stay CT head without contrast and MRI brain was done : CT of the head shows Lacunar infarcts within/adjacent to the basal ganglia, bilaterally, of indeterminate age. Possible lacunar infarcts in the milad (these may be artifactual). Consider MRI to assess acuity. Mild presumed small vessel ischemic disease of indeterminate age. MRI Brain without Contrast : Very minimal chronic microvascular ischemic ischemic changes in the white matter. Patient was started on Keppra IV, he had no seizure episodes during the hospital stay.He was discharged on Keppra 1000 mg every 12 hours daily.Family wants to see neurologist in [place], for his chronic pain syndrome he was advised to continue with his primary care, and if possible join Specialized pain management clinic. He was kept empirically kept on the abxs for possible aspiration pna. Blood cultures were negative at the time of discharge, prelim urine culture was negative. Patient responded well to the above medical management and is being discharged in stable condition to home. Physical Exam Const: COMMON NORMALS: patient oriented x3 HENMT: COMMON NORMALS: normocephalic and atraumatic HEAD & SCALP: normocephalic and atraumatic Resp: COMMON NORMALS: normal respiratory effort, No retractions, No use of accessory muscles and clear to auscultation bilaterally EFFORT & INSPECTION: Yes symmetric chest movement AUSCULTATION: clear to auscultation bilaterally Cardio: COMMON NORMALS: regular rate, regular rhythm, S1 normal heart sound present, S2 normal heart sound present, No gallops present (Cardio), No murmurs present (Cardio), No rub (Cardio) and Peripheral pulses 2+ throughout RATE: regular rate RHYTHM: regular rhythm HEART SOUNDS: S1 normal heart sound present and S2 normal heart sound present PERIPHERAL PULSES: Peripheral pulses 2+ throughout GI: COMMON NORMALS: Normal to inspection, nondistended, normoactive bowel sounds present, Soft to palpation, non-tender, No hepatosplenomegaly present and no masses AUSCULTATION: Yes normoactive bowel sounds PALPATION: Yes Soft to palpation and Yes No hepatosplenomegaly present RECTAL EXAM: Yes deferred Extremity: COMMON NORMALS: no clubbing, cyanosis or edema and no pedal edema Neuro: COMMON NORMALS: patient oriented x3 Discharge Data Data Completed and Pending: Completed Studies During Hospitalization Category Date Time Status CT chest w con* 7 1260 Routine Cat Scan 08/07/21 19:[address] head wo con* 7 0450 Urgent Cat Scan 08/06/21 14:11 Completed XR chest 1V tino ble [id number] Stat Exams 08/06/21 14:07 Completed MR head wo con* 7 0551 Routine MRI 08/07/21 Completed Pending at discharge Category Date Time Status EEG electroenceph alogram Routine Exams 08/06/21 18:05 Ordered Ammonia AM LABS Lab 08/09/21 04:00 Ordered Blood Culture Sta t Lab 08/06/21 20:10 Results Complete Blood Co unt w/Auto AM LABS Lab 08/09/21 04:00 Ordered Comprehensive Met abolic Panel AM LA BS Lab 08/09/21 04:00 Ordered Creatine Phosphok inase AM LABS Lab 08/09/21 04:00 Ordered Erythrocyte Sedim entation Rate Stat Lab 08/06/21 17:51 Received Magnesium AM LABS Lab 08/09/21 04:00 Ordered Phosphorus AM LAB S Lab 08/09/21 04:00 Ordered Urine Culture Sta t Lab 08/06/21 18:24 Results MR head wo con* 7 0551 Routine MRI 08/07/21 12:00 Unverified Labs from last 24 hours 08/08/21 08/08/21 08/08/21 05:34 05:34 05:34 WBC RBC Hgb Hct MCV MCH MCHC RDW Plt Count MPV Neut % (Auto) Lymph % (Auto) [place] % (Auto) Eos % (Auto) Baso % (Auto) Neut # (Auto) Lymph # (Auto) [place] # (Auto) Eos # (Auto) Baso # (Auto) Nucleated RBC % (a uto) Nucleated RBCs # Sodium 139 Potassium 3.8 Chloride 105 Carbon Dioxide 27 Anion Gap 10.8 BUN 7 Creatinine 0.8 GFR Calculation 104.1 Glucose 89 Calculated Osmolal ity 285 Calcium 8.4 L Phosphorus 2.5 Magnesium 2.2 Total Bilirubin 0.3 AST 8 ALT 12 Alkaline Phosphata se 70 Ammonia 24 Creatine Kinase 77 Total Protein 6.2 L Albumin 3.7 Globulin 2.5 08/08/21 05:34 WBC 6.6 RBC 4.35 Hgb 12.6 Hct 39.7 L MCV 91.3 MCH 29.0 MCHC 31.7 RDW 13.9 Plt Count 228 MPV 9.5 Neut % (Auto) 58.7 Lymph % (Auto) 29.4 [place] % (Auto) 5.3 Eos % (Auto) 4.9 Baso % (Auto) 1.4 Neut # (Auto) 3.85 Lymph # (Auto) 1.9 [place] # (Auto) 0.4 Eos # (Auto) 0.3 Baso # (Auto) 0.1 Nucleated RBC % (a uto) 0 Nucleated RBCs # 0.0 Sodium Potassium Chloride Carbon Dioxide Anion Gap BUN Creatinine GFR Calculation Glucose Calculated Osmolal ity Calcium Phosphorus Magnesium Total Bilirubin AST ALT Alkaline Phosphata se Ammonia Creatine Kinase Total Protein Albumin Globulin Vitals: Last Vital Signs Temp 97.6 F 08/08/21 07:57 Pulse 57 L 08/08/21 07:57 Resp 14 08/08/21 08:09 BP 148/90 08/08/21 07:57 Pulse Ox 96 08/08/21 07:57 Discharge Plan Discharge Patient Disposition: Home Condition: Stable Prescriptions: New Keppra 1,000 mg tablet 1,000 mg PO BID Qty: 60 RF: 3 Percocet 5-325 mg tablet 1 tab PO Q6H PRN (Reason: pain) Qty: 10 RF: 0 Continued gabapentin 600 mg tablet See Rx Instructions .ROUTE .COMPLEX RF: 0 trazodone 50 mg tablet 50 mg PO BEDTIME PRN (Reason: Insomnia) RF: 0 amlodipine 5 mg tablet 5 mg PO DAILY RF: 0 paroxetine HCl 40 mg tablet See Rx Instructions .ROUTE .COMPLEX RF: 0 Discharge Orders: Discharge Order (Routine); Ordered 08/08/21 Ordered By: Jeff Stokes Referrals: Dr. Angela Sullivan [Other] - 08/11/21 9:40 am (Patients PCP already established.) Discharge Diet: Low Salt Discharge Activity: Resume usual activity Patient Instructions: Oxycodone/Acetaminophen (By mouth), Levetiracetam (By mouth), Opioid Safety Activity Restrictions/Additional Instructions: Patient will see neurologist of his choice in [facility] for Continued management of seizure, as well as pain clinic for Chronic pain syndrome which he attributes to multiple accidents in past .He will continue to see his PCP as outpatient Discharge Attestations Time Spent in Discharge Care*: less than 30 min Specific Discharge Activities: educating patient, educating and/or supporting family/caregiver, discussing with pcp/other providers, discussing with skilled nursing case manager/social workers/dc planners, documenting/other paperwork and evaluating patient/reviewing data Status at Discharge: Cognitive status at discharge: cognitively intact , Behavioral status at discharge: cooperative , Functional status at discharge: independent ambulation Overall status at discharge: patient is back to baseline Quality Metrics Clinical Quality Measures During this hospital stay, did patient experience: None Coding Level of Care Code Acute Chg FW DC note Exam Detailed Diagnoses Grand mal seizure disorder G40.409 Accidental marijuana overdose T40.7X1A Encounter type: initial encounter
--- NOTE | 2021-08-08 10:03 | PC.NURSE ---
I reported pain to the nurse
[2021-08-08 11:41] VITALS: BP 148/90; PULSE 57; RESP 14; TEMP 36.4; O2SAT 96
[2021-08-08 12:02] LABS: Erythrocyte Sedimentation Rate 2 mm/hr (0-10)
--- NOTE | 2021-08-10 08:38 | PC.SOCIAL ---
attempted to contact pt twice yesterday, global technical writer didn't reach patient, attempted to contact today, message left.
== END 2021-08-08 11:43 | disposition home or self-care (01) | DRG 100 ==
LOC: ER 17:11 → ICU 17:21 → MEDSURG 08-07 17:18
PROVIDERS: Admitting Provider Family Medicine; Emergency Provider Emergency Medicine; Visit Provider Internal Medicine
DX: G40.409 Other generalized epilepsy and epileptic syndromes, not intractable, without status epilepticus (principal); J69.0 Pneumonitis due to inhalation of food and vomit; T40.7X1A Poisoning by cannabis (derivatives), accidental (unintentional), initial encounter; T54 Toxic effect of corrosive substances; G89.4 Chronic pain syndrome; G62.9 Polyneuropathy, unspecified; R51.9 Headache, unspecified; Z86.73 Personal history of transient ischemic attack (TIA), and cerebral infarction without residual deficits
CPT/HCPCS: 36415; 36600; 70450; 70551; 71045; 71260; 80053; 80306; 80307; 82140; 82550; 82803; 83735; 84100; 84146; 84443; 84484; 85025; 85651; 86140; 87040; 87086; 93005; 94664; 96361; 96372; 96374; 96375; 99285; C9113; J1644; J1953; J2060; J2543; J3490; J7030; Q9967

== ENCOUNTER 2024-09-26 10:01 | Emergency (ER) | payer BC, SELFPAY ==
[2024-09-26 10:02] VITALS: BP 116/91; PULSE 55; RESP 17; TEMP 36.3; O2SAT 94; BMI 32.1
--- NOTE | 2024-09-26 10:07 | ECG_ITS ---
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 Measurements Intervals [place] Rate: 59 P: 51 [place]: 173 QRS: 63 QRSD: 107 T: 35 QT: 396 QTc: 393 Interpretive Statements SINUS BRADYCARDIA Compared to ECG 08/06/2021 16:53:58 Sinus tachycardia no longer present Electronically Signed On 09-26-2024 15:55:43 [employer]CHOOL BUS MON[employer]OR by Alessia Liu M.D. [email or web address]
--- NOTE | 2024-09-26 10:11 | XRR_ITS ---
PROCEDURE INFORMATION: Exam: XR Chest Exam date and time: 09/26/2024 10:31 AM Age: 49 years old Clinical indication: Other: Syncope; Patient HX: PT arrives via EMS after having a syncopal episode at around 0800. PT was [place] when he had the episode. PT does not remember walking back from the [place]. PT does have a history of seizures. PT did have some substernal chest pain. TECHNIQUE: Imaging protocol: Radiologic exam of the chest. Views: 1 view. COMPARISON: CT chest w con* [id number] 08/07/2021 8:06 PM FINDINGS: Lungs: Subsegmental atelectasis or scarring at the lung bases. Pleural spaces: No pleural effusion. No pneumothorax. Heart/Mediastinum: The cardiac silhouette is unchanged. No gross evidence of pneumomediastinum. Diaphragm: Mild elevation of the right hemidiaphragm; unchanged. Bones/joints: No gross fracture. XR/XR chest 1V portable [id number] IMPRESSION: No acute cardiopulmonary abnormality identified.
[2024-09-26 10:37] LABS: Basophils # 0.1 10^3/uL (0.0-0.1); Basophils % 1.4 %; Eosinophils # 0.4 10^3/uL (0.0-0.8); Eosinophils % 4.9 %; Hematocrit 44.6 % (37-53); Lymphocytes # 1.8 10^3/uL (0.8-4.8); Lymphocytes % 24.2 %; Mean Corpuscular HGB Conc 32.7 g/dL (30-55); Mean Corpuscular Hemoglobin 29.3 pg (27-33); Mean Corpuscular Volume 89.6 fl (82-101); Monocytes # 0.4 10^3/uL (0.2-0.9); Monocytes % 5.1 %; Neutrophils # 4.76 10^3/uL (1.8-7.7); Neutrophils % 64.3 %; Nucleated Red Blood Cells % 0 %; Platelet Count 259 10^3/cmm (157-399); Red Blood Count 4.98 10^6/uL (3.85-5.65); Red Cell Distribution Width 13.1 % (12.1-15.1)
--- NOTE | 2024-09-26 10:56 | ED_ITS ---
HPI - Syncope 2 General: Chief Complaint: Syncope Stated Complaint: syncope Time Seen by Provider: 09/26/24 10:11 History of Present Illness: Patient presents to the ER after possibly having a syncopal episode around 8 AM. 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 Patient does remember going to his deer stand and sitting in his deer stand. Patient also stated he started having elevated left-sided chest pressure. 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 Patient was given 3 nitros, 3 and 24 mg aspirin and 100 mcg of fentanyl en route by EMS. Blood sugar upon arrival was 136. Patient said he is feeling better but not quite back to normal. Related Data Home Medications Medication Instructions Recorded Confirmed amlodipine 5 mg tablet 5 mg PO DAILY 08/06/21 09/26/24 gabapentin 600 mg tablet See Rx Instructions .Route .COMPLEX 08/06/21 09/26/24 atorvastatin 40 mg tablet 40 mg PO BEDTIME 09/26/24 09/26/24 buspirone 7.5 mg tablet 7.5 mg PO BID 09/26/24 09/26/24 duloxetine 60 mg capsule,delayed 60 mg PO DAILY 09/26/24 09/26/24 release nabumetone 750 mg tablet 750 mg PO BID 09/26/24 09/26/24 trazodone 100 mg tablet 100 mg PO BEDTIME 09/26/24 09/26/24 Allergies Allergy/AdvReac Type Severity Reaction Status Date / Time No Known Allergies Allergy Unverified 08/06/21 16:23 Review of Systems 2 General: Reports: 10 or more systems reviewed and unremarkable except in HPI and below PFSH ED 2 PFSH: Medical History Grand mal seizure disorder History of CVA (cerebrovascular accident) History of chronic pain History of anxiety History of seizures History of hypertension Accidental marijuana overdose Surgical History History of shoulder surgery Family History Father Diabetes Hypertension Social History Smoking and tobacco/nicotine status: never used tobacco/nicotine Alcohol intake: never Substance/Drug Use: current Physical Exam 2 Const: COMMON NORMALS: no acute distress, average body habitus, patient oriented x3, no limitations, healthy appearing, alert and well nourished HENMT: COMMON NORMALS: normocephalic, atraumatic, hearing grossly normal bilaterally, external ears normal, Normal external nose present and moist oral mucous membranes HEAD & SCALP: normocephalic and atraumatic NOSE: Normal external nose present EXTERNAL EAR: Yes external ears normal Neck/C-Spine: COMMON NORMALS: full ROM, no lymphadenopathy, supple, no meningeal signs, no JVD and Thyroid normal THYROID: Thyroid normal Chest: COMMONS NORMALS: normal inspection of the chest and normal palpation of entire chest wall Resp: COMMON NORMALS: normal respiratory effort, No retractions, No use of accessory muscles and clear to auscultation bilaterally AUSCULTATION: clear to auscultation bilaterally Cardio: COMMON NORMALS: no JVD, regular rate, regular rhythm, S1 normal heart sound present, S2 normal heart sound present, No gallops present (Cardio), No clicks present (Cardio), No murmurs present (Cardio) and No rub (Cardio) R ATE: regular rate RHYTHM: regular rhythm HEART SOUNDS: S1 normal heart sound present and S2 normal heart sound present GI: COMMON NORMALS: Normal to inspection, nondistended, normoactive bowel sounds present, Soft to palpation, non-tender, No hepatosplenomegaly present and no masses PALPATION: Yes Soft to palpation and Yes No hepatosplenomegaly present Neuro: COMMON NORMALS: patient oriented x3 SENSORIUM/ORIENTATION: Yes alert MENINGEAL SIGNS: Yes no meningeal signs Course 2 Vital Signs: Vital signs: Vital Signs Temperature 97.4 F L 09/26/24 10:02 Pulse Rate 52 L 09/26/24 12:01 Respiratory Rate 17 09/26/24 10:02 Blood Pressure 116/76 09/26/24 12:01 Pulse Oximetry 92 09/26/24 12:01 Oxygen Delivery Me thod Room Air 09/26/24 12:01 MDM - Syncope Medical Decision Making Patient had lab work included CBC CMP urinalysis urine drug screen, prolactin, troponin, all which was essentially negative. Patient's 2-hour troponins have been drawn but patient decided he wanted to leave in the meantime. We will call him with any positive results. He knows that he may have to come back if they are positive changes. Medical Records I reviewed the patient's medical records. Lab Data I reviewed the patient's lab results. 09/26/24 10:22 09/26/24 10:22 Radiology Impressions Chest X-Ray 09/26/24 10:11 IMPRESSION: No acute cardiopulmonary abnormality identified. Laboratory Results WBC 7.40 10^3/uL (3.29-11.43) 09/26/24 10:22 RBC 4.98 10^6/uL (3.85-5.65) 09/26/24 10:22 Hgb 14.60 g/dL (11.27-16.99) 09/26/24 10:22 Hct 44.6 % (37-53) 09/26/24 10:22 MCV 89.6 fl (82-101) 09/26/24 10:22 MCH 29.3 pg (27-33) 09/26/24 10:22 MCHC 32.7 g/dL (30-55) 09/26/24 10:22 RDW 13.1 % (12.1-15.1) 09/26/24 10:22 Plt Count 259 10^3/cmm (157-399) 09/26/24 10:22 MPV 10.0 fL (7.4-10.4) 09/26/24 10:22 Neut % (Auto) 64.3 % 09/26/24 10:22 Lymph % (Auto) 24.2 % 09/26/24 10:22 [place] % (Auto) 5.1 % 09/26/24 10:22 Eos % (Auto) 4.9 % 09/26/24 10:22 Baso % (Auto) 1.4 % 09/26/24 10:22 Neut # (Auto) 4.76 10^3/uL (1.8-7.7) 09/26/24 10:22 Lymph # (Auto) 1.8 10^3/uL (0.8-4.8) 09/26/24 10:22 [place] # (Auto) 0.4 10^3/uL (0.2-0.9) 09/26/24 10:22 Eos # (Auto) 0.4 10^3/uL (0.0-0.8) 09/26/24 10:22 Baso # (Auto) 0.1 10^3/uL (0.0-0.1) 09/26/24 10:22 Nucleated RBC % (auto) 0 % 09/26/24 10:22 Nucleated RBCs # 0.0 /100WBC 09/26/24 10:22 Sodium 141 mmol/L (136-145) 09/26/24 10:22 Potassium 4.7 mmol/L (3.5-5.1) 09/26/24 10:22 Chloride 105 mmol/L (98-107) 09/26/24 10:22 Carbon Dioxide 26 mmol/L (22-29) 09/26/24 10:22 Anion Gap 14.7 (5-19) 09/26/24 10:22 BUN 16 mg/dL (6-20) 09/26/24 10:22 Creatinine 0.9 mg/dL (0.7-1.2) 09/26/24 10:22 GFR Calculation 89.7 mL/min (90-130) L 09/26/24 10:22 Glucose 118 mg/dL (65-115) H 09/26/24 10:22 Calculated Osmolality 294 mOsm/kg (285-295) 09/26/24 10:22 Calcium 9.4 mg/dL (8.5-10.5) 09/26/24 10:22 Total Bilirubin 0.2 mg/dL (0.15-1.2) 09/26/24 10:22 AST 14 U/L (0-40) 09/26/24 10:22 ALT 21 U/L (0-41) 09/26/24 10:22 Alkaline Phosphatase 104 U/L (40-130) 09/26/24 10:22 Troponin T Baseline 8 ng/L (0-15) 09/26/24 10:22 Total Protein 7.3 g/dL (6.6-8.7) 09/26/24 10:22 Albumin 4.5 g/dL (3.5-5.2) 09/26/24 10:22 Globulin 2.8 g/dL (1.3-4.6) 09/26/24 10:22 Prolactin 14.31 ng/mL (4.0-15.2) 09/26/24 10:22 Urine Color Yellow (Yellow) 09/26/24 11:15 Urine Appearance Clear (CLEAR) 09/26/24 11:15 Urine pH 7.0 (5-7) 09/26/24 11:15 Ur Specific [place] 1.019 (1.005-1.030) 09/26/24 11:15 Urine Protein Negative (Negative) 09/26/24 11:15 Urine Glucose (UA) Negative (Normal) 09/26/24 11:15 Urine Ketones Negative (Negative) 09/26/24 11:15 Urine Blood Negative (Negative) 09/26/24 11:15 Urine Nitrate Negative (Negative) 09/26/24 11:15 Urine Bilirubin Negative (Negative) 09/26/24 11:15 Urine Urobilinogen 0.2 mg/dL (Negative) 09/26/24 11:15 Ur Leukocyte Esterase Negative (Negative) 09/26/24 11:15 Urine RBC 0-2 /hpf (0-2) 09/26/24 11:15 Urine WBC 0-5 /hpf (0-5) 09/26/24 11:15 Ur Squamous Epith Cells 0-5 /hpf (0-5) 09/26/24 11:15 Amorphous Sediment Not Reportable 09/26/24 11:15 Urine Bacteria None seen /hpf (NONE) 09/26/24 11:15 Hyaline Casts 3.71 /lpf 09/26/24 11:15 Urine Opiates Screen Negative ng/mL (Negative) 09/26/24 11:15 Ur Barbiturates Screen Negative ng/mL (Negative) 09/26/24 11:15 Ur Phencyclidine Scrn Negative ng/mL (Negative) 09/26/24 11:15 Ur Amphetamines Screen Negative ng/mL (Negative) 09/26/24 11:15 U Benzodiazepines Scrn Negative ng/mL (Negative) 09/26/24 11:15 Urine Cocaine Screen Negative ng/mL (Negative) 09/26/24 11:15 U Marijuana (THC) Screen Negative ng/mL (Negative) 09/26/24 11:15 All radiology interpretation(s) finalized by discharge Discharge Plan Discharge Patient Disposition: Home Clinical Impression: Pre-syncope Chest pain Qualifiers: Chest pain type: unspecified Qualified Code(s): R07.9 - Chest pain, unspecified Condition: Stable Prescriptions: No Action gabapentin 600 mg tablet See Rx Instructions .ROUTE .COMPLEX Rx Instructions: 3 TABLETS (1,800MG) IN THE MORNING, 1 TABLET (600MG) AT 2PM, AND 2 TABLETS (1,200 MG) IN THE EVENING amlodipine 5 mg tablet 5 mg PO DAILY atorvastatin 40 mg tablet 40 mg PO BEDTIME nabumetone 750 mg tablet 750 mg PO BID trazodone 100 mg tablet 100 mg PO BEDTIME buspirone 7.5 mg tablet 7.5 mg PO BID duloxetine 60 mg capsule,delayed release(DR/EC) 60 mg PO DAILY Discharge Orders: Discharge ED (Routine); Ordered 09/26/24 Ordered By: Renny Escobedo Referrals: Julia Sullivan MD [Primary Care Provider] - 1 week Patient Instructions: Near Syncope (ED), Chest Pain (ED) Activity Restrictions/Additional Instructions: Your second troponin is in the lab and were waiting for the test to be ran. If it is positive we will call you with the results and you will need to come back to the ER for further treatment. Otherwise follow-up with your family practice physician within next 7 days for further evaluation and treatment. Thank you for choosing [facility] for your healthcare needs today. Please realize that you were seen in the emergency department and that we are providing you with an emergency medical screening exam and this may not be a complete and all exclusive of all testing and/or medical workup we may need to determine your element or severity of your illness. It is very important that you follow-up as instructed with your primary care provider or specialist for the additional evaluation and to discuss your medical treatment plan. You may return to the emergency department should you have concerns or if your condition changes or worsens in any way. Coding Level of Care Code ED Plumbing Engineer for Abner Bocanegra
[2024-09-26 11:00] LABS: Alanine Aminotransferase 21 U/L (0-41); Albumin Level 4.5 g/dL (3.5-5.2); Alkaline Phosphatase 104 U/L (40-130); Anion Gap 14.7 (5-19); Aspartate Amino Transferase 14 U/L (0-40); Blood Urea Nitrogen 16 mg/dL (6-20); Calcium 9.4 mg/dL (8.5-10.5); Carbon Dioxide 26 mmol/L (22-29); Chloride 105 mmol/L (98-107); Creatinine Clr Calc Pharmacy 122.0501; Globulin 2.8 g/dL (1.3-4.6); Glomerular Filtration Rate 89.7 mL/min (90-130); Glucose 118 mg/dL (65-115); Osmolality Calculated 294 mOsm/kg (285-295); Potassium 4.7 mmol/L (3.5-5.1); Sodium 141 mmol/L (136-145); Total Bilirubin 0.2 mg/dL (0.15-1.2); Total Protein 7.3 g/dL (6.6-8.7)
[2024-09-26 11:01] LABS: Troponin(5th) Baseline 8 ng/L (0-15)
[2024-09-26 11:10] LABS: Prolactin 14.31 ng/mL (4.0-15.2)
[2024-09-26 11:44] LABS: Bilirubin Urine Negative (Negative); Blood Urine Negative (Negative); Glucose Urine UA Negative (Normal); Ketones Urine Negative (Negative); Leukocyte Esterase Urine Negative (Negative); Nitrate Urine Negative (Negative); Protein Urine Negative (Negative); Specific Gravity, Urine 1.019 (1.005-1.030); Urine Appearance Clear (CLEAR); Urine Color Yellow (Yellow); Urobilinogen Urine 0.2 mg/dL (Negative)
[2024-09-26 11:49] LABS: Add Urine Microscopic? YES; Bacteria Urine None Seen /hpf; Hyaline Casts Urine 3.71 /lpf; RBC Urine 0-2 /hpf (0-2); Squamous Epithelial Cell Urine 0-5 /hpf (0-5); WBC Urine 0-5 /hpf (0-5)
[2024-09-26 11:51] LABS: Amphetamines Screen Urine Negative (Negative); Barbiturates Screen Urine Negative (Negative); Benzodiazepines Screen Urine Negative (Negative); Cocaine Screen Urine Negative (Negative); Opiate Screen Urine Negative (Negative); PCP Screen Urine Negative (Negative); THC Screen Urine Negative (Negative)
[2024-09-26 12:01] VITALS: BP 116/76; PULSE 52; O2SAT 92
[2024-09-26 12:36] VITALS: BP 119/82; PULSE 53; O2SAT 92
[2024-09-26 13:24] LABS: Troponin 5 2HR 13.75 ng/L (0-15); Troponin 5 2HR Delta 5.75 ABS# (0-10)
== END 2024-09-26 12:40 | disposition home or self-care (01) ==
PROVIDERS: Emergency Provider Emergency Medicine; PCP Family Medicine
DX: R55 Syncope and collapse (principal); R07.9 Chest pain, unspecified; I10 Essential (primary) hypertension; Z86.73 Personal history of transient ischemic attack (TIA), and cerebral infarction without residual deficits
CPT/HCPCS: 71045; 80053; 80306; 81001; 84146; 84484; 85025; 93005; 99285